=== PATIENT | female | born 1985 | race Caucasian/White ===

== ENCOUNTER 2019-06-17 14:34 | Emergency (ER) | payer SELFPAY ==
[~2019-06-17] VITALS: Ht 157.5 cm; Wt 68.0 kg
--- NOTE | 2019-06-17 14:34 | NUR ---
Patient BIBA BLS, transferred to bed 9. RN evaluating patient at bedside.
[2019-06-17 14:40] VITALS: BP 99/57
[2019-06-17] MEDS ORDERED: NACL 0.9% 1,000 ML IV SCH (14:58)
[2019-06-17] MEDS ORDERED: KETOROLAC 30 MG/ML VIAL IVP ONE (15:00)
--- NOTE | 2019-06-17 15:00 | NUR ---
Pt yelling in bed 9. Pt screaming "I want an x-ray! I want to see my baby! Damn it!" Pt yelling in azeri, punching the [place] mattress, thrashing in bed. Patient appears to be crying and screaming. Patient found topless in the bed trying to grab her items from her chairside. I tried speaking with patient to advise her she had blood tests and an IV ordered. Pt screaming at me, will not let me speak or listen to what I am trying to say. Patient became aggressive and pushed the side table at me and knocked it on the ground. Pt is screaming and combative. Patient got up from [facility] and began throwing her personal belongings out of her room towards the ambulance door entrance. Security was called to bedside.
--- NOTE | 2019-06-17 15:18 | NUR ---
Pt outside in ambulance bay, security is across the parking lot. Pt refusing to leave. Pt observed yelling at security "I want an x-ray damnit! I want to see my baby!" I tried another time to speak with patient. I asked patient to be calm and quiet. Pt began to yell and scream at me. Pt yelling at me to "shut up!" and "leave me alone!"
--- NOTE | 2019-06-17 15:20 | NUR ---
I tried another time to speak with patient to have her come inside to be evaluated. Pt yelling "I want my blood results! I want my admission papers!" I advised patient we did not draw any lab tests on her. Pt cutting me off and yelling pointing to her finger that has a bandaid on it. I advised her that was from the ambulance who brought her in. Pt yelling "No! I want my results!" Pt states "I'm bleeding look!" Pt puts her hands in pants and pulls out her hand with blood on her fingers. I asked the patient if she was on her menstrual cycle and patient does not answer me and is saying "look look I have HIV do you want it" as she put her hands towards me. I stepped back and told the patient if she wanted medically treatment she could come back inside. Patient yelling "You already did blood work! Look!" pointing at her finger with a bandaid. Patient refused to come back inside. Pt is verbally aggressive, uncooperative, disheveld yelling in the parking lot. Deshawn MALIN to be called.
--- NOTE | 2019-06-17 15:32 | NUR ---
PATIENT LEFT WITHOUT BEING SEEN BY DR. SAAB. DR. GE MADE AWARE PT LEFT FACILITY. NO FURTHER CARE PROVIDED FOR PATIENT.
--- NOTE | 2019-06-17 15:32 | NUR ---
Officer Braydon arrived to ER. Pt was not outside ER lobby upon arrival. Officer Braydon asked us to call if patient returns.
== END 2019-06-17 15:32 | disposition left against medical advice (07) ==
LOC: MED 14:34
DX: R10.30 Lower abdominal pain, unspecified (principal); Z53.21 Procedure and treatment not carried out due to patient leaving prior to being seen by health care provider